=== PATIENT | male | born 1970 | race Caucasian/White ===

== ENCOUNTER 2021-09-07 16:51 | Emergency (ER) | payer BC ==
[2021-09-07 18:37] LABS: HEMOGLOBIN 16.2 gm/dl (14.0-17.5); RED BLOOD COUNT 5.6 M/UL (4.20-5.50); WHITE BLOOD COUNT 10.1 K/UL (4.5-11.0)
[2021-09-07 19:23] LABS: BUN/CREATININE RATIO 13 (0-10)
[2021-09-07] MEDS ORDERED: PROTONIX40 MG PO (21:55)
[2021-09-07] MEDS ORDERED: BENTYL 20MG TAB20 MG PO (21:55)
[2021-09-07] MEDS ORDERED: ZOFRAN4 MG PO (21:55)
== END 2021-09-07 22:03 | disposition home or self-care (01) ==
LOC: ER1 16:51
PROVIDERS: Physician Assistant
DX: K52.9 Noninfective gastroenteritis and colitis, unspecified (principal); K21.9 Gastro-esophageal reflux disease without esophagitis; F17.200 Nicotine dependence, unspecified, uncomplicated
CPT/HCPCS: 36415; 80053; 81001; 82150; 83690; 85025; 96374; 96375; 99284; J2270; J2405; Q9967

== ENCOUNTER → 2021-10-03 | Outpatient (CLI) | payer BC ==
[~2021-10-03] MED LIST: BENTYL 20MG TAB20 MG PO; PROTONIX40 MG PO; ZOFRAN4 MG PO
== END ==
LOC: US 09:13
DX: R10.11 Right upper quadrant pain (principal); K82.4 Cholesterolosis of gallbladder
CPT/HCPCS: 76705